=== PATIENT | female | born 1940 | race Caucasian/White ===

== ENCOUNTER → 2017-12-19 | Outpatient (CLI) | payer MEDICARE, OTHER ==
[~2017-12-19] MED LIST: ASPI81TA94 PO; AZIT-1 PO; CALC600T63 PO; CALC600T72 PO; CART5DRO OP; CEPH-13 PO; CHOL100059 PO; CICL15CR TP; CYAN250T15 PO; FOLI0.4T56 PO; GLUC-198 PO; LEVO50TA86 PO; LEVO75TA68 PO; LEVO75TA73 PO; METHOTREXATE IM; MULT-1077 PO; MULTI VITAMIN PO; POTA99TA13 PO; POTA99TA6 PO; VELAFAXINE PO; VENL25TA3 PO; VENL75TA12 PO; VERA180C7 PO; VERA180T53 PO; [UNRECOGNIZED DRUG - OTHER] OU
== END ==
LOC: LAB 15:45
PROVIDERS: ATTEND Emergency Medicine
DX: E03.9 Hypothyroidism, unspecified (principal)
CPT/HCPCS: 36415; 84443

== ENCOUNTER → 2018-01-30 | Outpatient (CLI) | payer MEDICARE, OTHER ==
[~2018-01-30] MED LIST changes: +FEXO-67 PO
== END ==
LOC: LAB 15:11
PROVIDERS: ATTEND Emergency Medicine
DX: M81.0 Age-related osteoporosis without current pathological fracture (principal); E03.9 Hypothyroidism, unspecified
CPT/HCPCS: 36415; 82306; 84443

== ENCOUNTER → 2018-11-02 | Outpatient (CLI) | payer MEDICARE, OTHER ==
[~2018-11-02] MED LIST changes: -CART5DRO OP; +MONT10TA PO; +[UNRECOGNIZED DRUG - OTHER] OP
--- NOTE | 2018-11-03 13:14 | RADIOLOGY IMAGING REPORT ---
[place] [facility] [place] NAME: TREVER CHAVIRA : [id number] MR: [id number] V: [id number] EXAM DATE: [id number] ORDERING PHYSICIAN: ROBERT TRAN TECHNOLOGIST: Ines Hartman PROCEDURE:BILATERAL DIGITAL SCREENING MAMMOGRAM WITH CAD ASSISTED INTERPRETATION & 3D TOMOSYNTHESIS COMPARISON:Prior mammograms 10/31/17, 10/29/16, 10/28/15, 10/30/14, 10/29/13, 10/23/12. INDICATIONS:SCREENING FINDINGS: The breasts are heterogeneous dense which may obscure small masses. There is a small focal area of high density with indistinct margins just lateral to midline in the middle 1/3 of the Right breast on the Right CC view for which Spot compression view is recommended. The remainder of the parenchymal pattern appears stable. DIAGNOSTIC CATEGORY 0--INCOMPLETE: NEED ADDITIONAL IMAGING EVALUATION. RECOMMENDATIONS: ADDITIONAL MAMMOGRAPHIC VIEWS REQUIRED: RIGHT BREAST. IMPRESSION: BIRADS 0: Incomplete. Additional views of the Right breast recommended as described. Dictated by: Beatrice Brown M.D. on 11/02/2018 at 17:14 Transcribed by: LYNDA on 11/03/2018 at 8:33 Approved by: Beatrice Brown M.D. on 11/03/2018 at 13:12 [facility]
== END ==
LOC: MAMO 00:36
PROVIDERS: ATTEND Emergency Medicine
DX: Z12.31 Encounter for screening mammogram for malignant neoplasm of breast (principal); R92.8 Other abnormal and inconclusive findings on diagnostic imaging of breast
CPT/HCPCS: 77063; 77067

== ENCOUNTER → 2018-11-29 | Outpatient (CLI) | payer MEDICARE, OTHER ==
--- NOTE | 2018-11-29 16:27 | RADIOLOGY IMAGING REPORT ---
[place]AC[place] [facility] [place] NAME: TREVER CHAVIRA : [id number] MR: [id number] V: [id number] EXAM DATE: [id number] ORDERING PHYSICIAN: ROBERT TRAN TECHNOLOGIST: Ines Hartman PROCEDURE:RIGHT DIGITAL DIAGNOSTIC MAMMOGRAM WITH CAD ASSISTED INTERPRETATION & 3D TOMOSYNTHESIS COMPARISON:Prior mammograms 11/02/18, 10/31/17, 10/29/16, 10/28/15, 10/30/14, 10/29/13, 10/23/12. INDICATIONS:FURTHER EVAL FINDINGS: The patient returns for Spot compression view in the Right CC projection. The focal area of increased density in the lateral portion of the Right breast in the middle 3 appears completely compressible and apparently represented a summation shadow. There is no demonstration of malignant appearing mass or calcification in the Right breast. DIAGNOSTIC CATEGORY 2--BENIGN FINDING. RECOMMENDATIONS: ROUTINE MAMMOGRAM AND CLINICAL EVALUATION. IMPRESSION: BIRADS 2: Benign finding. No significant abnormality of the Right breast is seen. Dictated by: Beatrice Brown M.D. on 11/29/2018 at 14:26 Transcribed by: LYNDA on 11/29/2018 at 15:17 Approved by: Beatrice Brown M.D. on 11/29/2018 at 16:26 [facility]
== END ==
LOC: MAMO 02:39
PROVIDERS: ATTEND Emergency Medicine
DX: R92.8 Other abnormal and inconclusive findings on diagnostic imaging of breast (principal)
CPT/HCPCS: 77061; 77065

== ENCOUNTER → 2019-01-05 | Outpatient (CLI) | payer MEDICARE, OTHER | LOC: LAB 15:04 | PROVIDERS: ATTEND Emergency Medicine | DX: E87.1 Hypo-osmolality and hyponatremia (principal) | CPT/HCPCS: 83935; 84300 ==

== ENCOUNTER → 2019-01-05 | Outpatient (CLI) | payer MEDICARE, OTHER ==
--- NOTE | 2019-01-05 07:52 | EKG ---
FACILITY: [facility] PATIENT NAME: TREVER CHAVIRA : [id number] MR: [id number] V: [id number] EXAM DATE: ORDERING PHYSICIAN: JAZMÍN ADHIKARI TECHNOLOGIST: RICK Test Reason : PRE OP Blood Pressure : / mmHG Vent. Rate : 086 BPM Atrial Rate : 086 BPM P-R Int : 182 ms QRS Dur : 092 ms QT Int : 380 ms P-R-T Axes : 070 007 060 degrees QTc Int : 454 ms Normal sinus rhythm Low voltage QRS Borderline ECG When compared with ECG of 01-MAY-2013 08:16, No significant change was found Confirmed by JAZMÍN BLOOD ([id number]) on 01/05/2019 10:54:05 PM Referred By: ONOFRE Confirmed By:JAZMÍN BLOOD
== END ==
LOC: LAB 07:24
PROVIDERS: ATTEND Anesthesiology
DX: Z01.812 Encounter for preprocedural laboratory examination (principal); Z01.810 Encounter for preprocedural cardiovascular examination; M84.48XA Pathological fracture, other site, initial encounter for fracture
CPT/HCPCS: 36415; 82040; 82247; 82310; 82374; 82435; 82565; 82947; 84075; 84132; 84155; 84295; 84450; 84460; 84520; 93005

== ENCOUNTER → 2019-01-06 | Outpatient (CLI) | payer MEDICARE, OTHER | LOC: LAB 07:43 | PROVIDERS: ATTEND Emergency Medicine | DX: E87.1 Hypo-osmolality and hyponatremia (principal) | CPT/HCPCS: 36415; 82024; 82533; 83002; 83003; 84146; 84305; 84403; 84436; 84443; 84480 ==

== ENCOUNTER → 2019-01-08 | Outpatient (CLI) | payer MEDICARE, OTHER ==
[~2019-01-08] MED LIST changes: +DEXTROSE 5%(*) 100 ML BAG 100 ML IVPB PRN; +LIDOCAINE/SOD BICARB 8.4% SYR ID PRN; +NS(*) 0.9% 100 ML BAG 100 ML IVPB PRN; +NS(*) 0.9% 1000 ML BAG 1,000 ML IV ONE
[2019-01-08 14:42] VITALS: BP 120/71
== END ==
LOC: SPU 10:57
PROVIDERS: ATTEND Emergency Medicine
DX: E87.1 Hypo-osmolality and hyponatremia (principal)
CPT/HCPCS: 36415; 83935; 84300; J7030; 82310; 82374; 82435; 82565; 82947; 84132; 84295; 84520; 96360

== ENCOUNTER 2019-07-11 02:10 | Day surgery (SDC) | payer MEDICARE, OTHER ==
[~2019-07-11] VITALS: Ht 152.4 cm; Wt 54.4 kg
[~2019-07-11 02:10] MED LIST changes: -DEXTROSE 5%(*) 100 ML BAG 100 ML IVPB PRN; +FLUT16SP19 NS; +LATODPT OD; -LIDOCAINE/SOD BICARB 8.4% SYR ID PRN; -NS(*) 0.9% 100 ML BAG 100 ML IVPB PRN; -NS(*) 0.9% 1000 ML BAG 1,000 ML IV ONE; -VERA180T53 PO; +VERA180T57 PO
[2019-07-11] MEDS ORDERED: PROPOFOL EMUL(*) 10MG/ML 20 ML 40 ML ONE (07:03)
[2019-07-11] MEDS ORDERED: LIDOCAINE/SOD BICARB 8.4% SYR ID ONE (12:00)
[2019-07-11] MEDS ORDERED: NORMOSOL R SOLN(*) 1000 ML BAG 1,000 ML IV PRN (12:00)
[2019-07-11] MEDS ORDERED: MINI IVPB ONE (12:20)
[2019-07-11] MEDS ORDERED: NS 0.9% IVPB ONE (12:20)
[2019-07-11] MEDS ORDERED: AMPICILLIN IVPB ONE (12:20)
[2019-07-11] MEDS ORDERED: GENTAMICIN/NS 80 MG/100 ML PB 100 ML IVPB ONE (12:20)
[2019-07-11 12:56] VITALS: BP 140/73
[2019-07-11 14:41] VITALS: BP 101/64
[2019-07-11 15:00] VITALS: BP 115/62
[2019-07-11 15:08] VITALS: BP 114/70
[2019-07-11 15:13] VITALS: BP 114/70
[2019-07-11 15:15] VITALS: BP 130/81
== END 2019-07-11 15:50 | disposition home or self-care (01) ==
LOC: OR 02:10
PROVIDERS: ATTEND Internal Medicine Gastroenterology
DX: Z12.11 Encounter for screening for malignant neoplasm of colon (principal); K64.9 Unspecified hemorrhoids; K57.30 Diverticulosis of large intestine without perforation or abscess without bleeding
CPT/HCPCS: 00812; 45378; J0290; J1580; J2704